=== PATIENT | female | born 1955 | race Native Hawaiian/Other Pacific Islander ===

== ENCOUNTER 2017-07-31 22:22 | Inpatient (IN) | payer BC ==
[2017-08-01 00:09] LABS: PH,URINE 6.5 (4.7-8.0); URINE APPEARANCE CLEAR (CLEAR); URINE BILIRUBIN NEGATIVE (NEGATIVE); URINE BLOOD NEGATIVE (NEGATIVE); URINE COLOR STRAW (YELLOW); URINE GLUCOSE (UA) NEGATIVE (NEGATIVE); URINE KETONE NEGATIVE (NEGATIVE); URINE LEUKOCYTE ESTERASE SMALL Leu/uL (NEGATIVE); URINE PROTEIN NEGATIVE mg/dL (<30 mg/dL); URINE UROBILINOGEN 0.2 E.U./dL (<1 E.U./dL)
[2017-08-01 00:16] LABS: BASO # 0.04 K/mm3 (0.0-2.0); BASO % 0.5 % (0.0-3.0); EOS # 0.2 (0.0-0.7); EOS % 2.7 % (1.5-5.0); GRAN # 5.15 (1.4-6.5); GRAN % 66.3 % (50.0-68.0); HEMATOCRIT 42.3 % (36.0-48.0); LYMPH # 1.8 (1.2-3.4); LYMPH % 23.7 % (22.0-35.0); MEAN CELL VOLUME 88.1 fl (80.0-105.0); MEAN CORPUSCULAR HEMOGLOBIN 29.8 pg (25.0-35.0); MEAN CORPUSCULAR HGB CONC 33.8 g/dl (31.0-37.0); MEAN PLATELET VOLUME 9.6 fl (7.0-11.0); MONO # 0.5 (0.1-0.6); MONO % 6.8 % (1.0-6.0); RED CELL DISTRIBUTION WIDTH 12.4 % (11.5-14.5); WHITE BLOOD COUNT 7.8 10^3/ul (4.5-11.0)
[2017-08-01 00:27] LABS: URINE RBC 0 - 2 /hpf (0-2); URINE WBC 0 - 2 /hpf (0-6)
[2017-08-01 00:28] LABS: ALB/GLOB RATIO 1.5 (1.1-1.8); ALKALINE PHOSPHATASE 60 U/L (38-126); ALT/SGPT 17 U/L (7-56); AST/SGOT 27 U/L (14-36); BILIRUBIN,TOTAL 0.3 mg/dL (0.2-1.3); BLOOD UREA NITROGEN 13 mg/dL (7-21); CALCIUM 9.2 mg/dL (8.4-10.5); CARBON DIOXIDE 26 mmol/L (21-33); CHLORIDE 104 mmol/L (98-107); GFR AFRICAN-AMERICAN > 60; GLUCOSE,RANDOM 92 mg/dL (70-110); INR 0.95 (0.93-1.08); PARTIAL THROMBOPLASTIN TIME 26.2 Seconds (23.7-30.8); SODIUM 142 mmol/L (132-148); TOTAL PROTEIN 7.1 g/dL (5.8-8.3); URINE EPITHELIAL CELLS 0 - 2 /hpf (0-5)
[2017-08-01 00:41] LABS: TROPONIN I < 0.01 ng/mL
--- NOTE | 2017-08-01 00:47 | CT ---
EXAM: CT Head Without Intravenous Contrast CLINICAL HISTORY: 62 years old, female; Pain; Headache; Additional info: Headache/dizziness/numbness TECHNIQUE: Axial computed tomography images of the head/brain without intravenous contrast. All CT scans at this facility use one or more dose reduction techniques, viz.: automated exposure control; ma/kV adjustment per patient size (including targeted exams where dose is matched to indication; i.e. head); or iterative reconstruction technique. Coronal and sagittal reformatted images were created and reviewed. COMPARISON: No relevant prior studies available. FINDINGS: Brain: A single 9 mm focus of increased attenuation is identified within the left frontal lobe with trace surrounding vasogenic edema, findings suggesting acute intracranial hemorrhage. Age-appropriate periventricular white matter disease. Ventricles: Age-appropriate ventriculomegaly. Bones: No acute displaced fracture. Sinuses: Unremarkable as visualized. No acute sinusitis. Mastoid air cells: Unremarkable as visualized. No mastoid effusion. IMPRESSION: 9 mm focus of acute hemorrhage within the left frontal lobe, as detailed above.
--- NOTE | 2017-08-01 01:08 | ED PDOC ---
Arrival/HPI <Hai Haley - Last Filed: 08/01/17 02:29> - General Historian: Patient - History of Present Illness Time/Duration: Other (2 days) Symptom Onset: Gradual Symptom Course: Worsening <Roya Alonso - Last Filed: 08/01/17 03:32> - General Chief Complaint: Allergic Reaction Time Seen by Provider: 07/31/17 22:40 - History of Present Illness Narrative History of Present Illness (Text): 08/01/17 01:32 62-year-old female with a history of Parkinson's presents today with a right- sided headache and facial numbness that started yesterday but worsened today after taking her new Parkinson's medication (sinemet). Patient describes paresthesias to the right scalp and right side of the face. Patient states now she feels paresthesias to the left side of the face. Patient initially was thinking that she could possibly be allergic to her new medication. Patient complains of chronic back pain and chronic bilateral lower leg paresthesias. Patient complaining of generalized weakness no chest pain or shortness of breath. Denies blurred vision. (Roya Alonso) Past Medical History - Provider Review Nursing Documentation Reviewed: Yes - Travel History Have you recently traveled outside [place] w/in the past 3 mons?: No - Infectious Disease Hx of Infectious Diseases: None - Cardiac Hx Cardiac Disorders: Yes Hx Hypertension: Yes - Pulmonary Hx Respiratory Disorders: No - Neurological Hx Neurological Disorder: Yes Hx Parkinson's Disease: Yes - Integumentary Hx Dermatological Disorder: No - Psychiatric Hx Substance Use: No <Roya Alonso - Last Filed: 08/01/17 03:32> Family/Social History - Physician Review Nursing Documentation Reviewed: Yes Family/Social History: Unknown Family HX Smoking Status: Never Smoked Hx Alcohol Use: No Hx Substance Use: No <Roya Alonso - Last Filed: 08/01/17 03:32> Allergies/Home Meds <Hai Haley - Last Filed: 08/01/17 02:29> <Roya Alonso - Last Filed: 08/01/17 03:32> Allergies/Adverse Reactions: Allergies No Known Allergies Allergy (Verified 07/31/17 22:36) Home Medications: Home Meds Medication Instructions Recorded Confirmed Calcium Carbonate [Oscal] 500 mg PO DAILY 07/31/17 07/31/17 Carbidopa/Levodopa 1 each PO TID 07/31/17 07/31/17 [Carbidopa-Levodopa 25-100 Tab] Cholecalciferol [Vitamin D] 1,000 unit PO DAILY 07/31/17 07/31/17 Gabapentin [Neurontin] 100 mg PO DAILY 07/31/17 07/31/17 Metoprolol Succinate [Toprol XL] 25 mg PO DAILY 07/31/17 07/31/17 [place]-3S/Dha/Epa/Fish Oil/D3 [Fish 1 each PO DAILY 07/31/17 07/31/17 Oil Gummies] Review of Systems - Review of Systems Constitutional: absent: Fatigue, Fevers Eyes: absent: Vision Changes, Photophobia, Eye Pain ENT: absent: Sinus Congestion Respiratory: absent: SOB, Cough Cardiovascular: absent: Chest Pain, Palpitations Gastrointestinal: absent: Abdominal Pain, Nausea, Vomiting Genitourinary Female: absent: Dysuria Musculoskeletal: Arthralgias, Back Pain, Other (Paresthesias in face and bilateral lower legs). absent: Neck Pain Neurological: Headache, Dizziness. absent: Focal Weakness, Facial Droop Psychiatric: absent: Anxiety, Depression, Suicidal Ideation <Roya Alonso T - Last Filed: 08/01/17 03:32> Physical Exam Vital Signs Reviewed: Yes Temperature: Afebrile Blood Pressure: Normal Pulse: Tachycardic Respiratory Rate: Normal Appearance: Positive for: Well-Appearing, Non-Toxic, Comfortable Pain Distress: None Mental Status: Positive for: Alert and Oriented X 3 - Systems Exam Head: Present: Atraumatic. No: Tenderness, Contusion, Swelling, Ecchymosis, Abrasion, Laceration Pupils: Present: PERRL Extroacular Muscles: Present: EOMI Conjunctiva: Present: Normal. No: Injected Mouth: Present: Moist Mucous Membranes Nose (External): Present: Atraumatic Nose (Internal): Present: Normal Inspection Neck: Present: Normal Range of Motion Respiratory/Chest: Present: Clear to Auscultation Cardiovascular: Present: Regular Rate and Rhythm Abdomen: No: Tenderness, Rebound, Guarding Upper Extremity: Present: Normal ROM. No: Tenderness, Swelling Lower Extremity: Present: NORMAL PULSES, Normal ROM (slow full rom, limited rom of toes), Capillary Refill < 2 s. No: Tenderness Neurological: Present: Speech Normal, Memory Normal. No: Normal Sensory Function (+ decreased sensation in lower extremities. ), Gait Normal (Shuffling gait) Skin: Present: Warm, Dry Psychiatric: Present: Alert, Oriented x 3 <Roya Alonso - Last Filed: 08/01/17 03:32> Vital Signs Temp Pulse Resp BP Pulse Ox 08/01/17 03:04 101 H 23 141/94 H 99 08/01/17 01:08 98.6 F 109 H 20 144/87 97 Medical Decision Making <Hai Haley - Last Filed: 08/01/17 02:29> <Roya Alonso - Last Filed: 08/01/17 03:32> ED Course and Treatment: 08/01/17 01:19 62yr old female with hx of parkinsons c/o right sided headache, dizziness, parasthesias. cbc; wnl cmp; wnl trop; wnl ekg; normal sinus rhythm at [address] elevations normal axis normal intervals cxr; no infiltrate uA; small leukocytes CT Head; FINDINGS: Brain: A single 9 mm focus of increased attenuation is identified within the left frontal lobe with trace surrounding vasogenic edema, findings suggesting acute intracranial hemorrhage. Age-appropriate periventricular white matter disease. Ventricles: Age-appropriate ventriculomegaly. Bones: No acute displaced fracture. Sinuses: Unremarkable as visualized. No acute sinusitis. Mastoid air cells: Unremarkable as visualized. No mastoid effusion. IMPRESSION: 9 mm focus of acute hemorrhage within the left frontal lobe, as detailed above. pt with hx of parkinsons; with right sided headache dizziness and parasthesias to face bilaterally. no acute neurologic deficits. 08/01/17 01:[address] quigley; observation; no intervention at this time. case discussed with dr. richardson; accepts admission to ICU case discussed with dr. arroyo covering for dr. sibley; accepts admission. case discussed with resident; dr. estrada discussed results in depth with patient/family. impression; intracranial hemorrhage Admit to ICU (Roya Alonso) - Lab Interpretations Lab Results: 07/31/17 23:54 07/31/17 23:54 Lab Results 07/31/17 23:54: PT 10.3, INR 0.95, APTT 26.2 07/31/17 23:54: WBC 7.8, RBC 4.80, Hgb 14.3, Hct 42.3, MCV 88.1, MCH 29.8, MCHC 33.8, RDW 12.4, Plt Count 320, MPV 9.6, Gran % 66.3, Lymph % (Auto) 23.7, [place] % (Auto) 6.8 H, Eos % (Auto) 2.7, Baso % (Auto) 0.5, Gran # 5.15, Lymph # 1.8, [place] # 0.5, Eos # 0.2, Baso # 0.04 07/31/17 23:54: Sodium 142, Potassium 4.0, Chloride 104, Carbon Dioxide 26, Anion Gap 16, BUN 13, Creatinine 0.7, Est GFR ( Amer) > 60, Est GFR (Non- Af Amer) > 60, Random Glucose 92, Calcium 9.2, Total Bilirubin 0.3, AST 27, ALT 17, Alkaline Phosphatase 60, Lactate Dehydrogenase 411, Total Creatine Kinase 41 , Troponin I < 0.01, Total Protein 7.1, Albumin 4.3, Globulin 2.8, Albumin/ Globulin Ratio 1.5 07/31/17 23:54: Urine Color Straw, Urine Appearance Clear, Urine pH 6.5, Ur Specific [place] <= 1.005, Urine Protein Negative, Urine Glucose (UA) Negative, Urine Ketones Negative, Urine Blood Negative, Urine Nitrate Negative, Urine Bilirubin Negative, Urine Urobilinogen 0.2, Ur Leukocyte Esterase Small H, Urine RBC 0 - 2, Urine WBC 0 - 2, Ur Epithelial Cells 0 - 2 07/31/17 22:35: POC Glucose (mg/dL) 131 H - RAD Interpretation Radiology Orders: 07/31/17 23:26 HEAD W/O CONTRAST [CT] Stat CHEST PORTABLE [RAD] Stat 08/01/17 08:00 HEAD W/O CONTRAST [CT] Routine - Medication Orders Current Medication Orders: Sodium Chloride (Sodium Chloride 0.9%) 1,000 mls @ 100 mls/hr IV .Q10H PAMELA Pantoprazole Sodium (Protonix Inj) 40 mg IVP DAILY PAMELA NIHSS Scale ([place]) Time Performed: 23:25 - How Severe is the Stoke Baseline Level of Consciousness: 0=Alert LOC to Questions: 0=Both comments correct LOC to commands: 0=Obeys both correctly Best Gaze: 0=Normal Visual: 0=No visual loss Facial: 0=Normal Motor Arm - Left: 0=No drift Motor Arm - Right: 0=No drift Motor Leg - Left: 0=No drift Motor Leg - Right: 0=No drift Limb Ataxia: 0=Absent Sensory: 0=Normal Best Language: 0=No aphasia Dysarthia: 0=Normal articulation Extinction & Inattention (Neglect): 0=Normal, no object Score: 0 Risk Level: No Stroke Risk <Roya Alonso - Last Filed: 08/01/17 03:32> - PA / MEDICAL RECEPTIONIST ASSISTANT / Resident Statement RYAN has reviewed & agrees with the documentation as recorded. RYAN has examined the patient and agrees with the treatment plan. <Hai Haley - Last Filed: 08/01/17 02:29> Disposition/Present on Arrival <Hai Haley - Last Filed: 08/01/17 02:29> - Present on Arrival Any Indicators Present on Arrival: No History of DVT/PE: No History of Uncontrolled Diabetes: No Urinary Catheter: No History of Decub. Ulcer: No History Surgical Site Infection Following: None - Disposition Have Diagnosis and Disposition been Completed?: Yes Disposition Time: 01:08 Patient Plan: Admission, ICU <Roya Alonso - Last Filed: 08/01/17 03:32> - Disposition Diagnosis: Intracranial hemorrhage Disposition: HOSPITALIZED Patient Problems: Current Active Problems Problem Status Onset Intracranial hemorrhage Acute Condition: CRITICAL
--- NOTE | 2017-08-01 02:22 | CP.PCM.CON ---
<Monica Irene - Last Filed: 08/01/17 06:47> History of Present Illness - History of Present Illness History of Present Illness: 62yo female PMHx HTN, Parkinson's dz, neuropathy, and osteoporosis presented with right sided facial numbness for 1 day. Patient reports she woke up and felt the left side of her face was numb and tingling which radiated to the right side. She also complained of a bilateral 10/10 headache with associated blurry vision, dizziness, and lightheadedness. Patient also complained of nausea but no emesis. At first she believed she was having an allergic reaction to her new medication regimen which is why she came in. She also complained of chronic bilateral lower leg pain and paresthesias. Patient has seen Dr. Ovi Pennington in the past for paresthesias and has been worked up with cervico/thoraco/ lumbar MRI. She reports the numbness is waist down and she feels like her legs are stuck. She denied any saddle anesthesia and incontinence. Patient denied any chest pain, SOB, abdominal pain, bowel/bladder complaints. PMD: [facility] [place] Physician PMHx: HTN, Parkinson's dz, neuropathy, osteoporosis PSurgHx: hysterectomy 1999, 1981, lumpectomy R breast ' Family Hx: mother HTN, sister breast ca Social Hx: denies tobacco, alcohol, and illicit drug use Allergy: latex, spandex Meds: pls see medical record Review of Systems - Constitutional Constitutional: As Per HPI. absent: Chills, Fever - EENT Eyes: As Per HPI, Blurred Vision Ears: As Per HPI, Disequilibrium, Dizziness Nose/Mouth/Throat: As Per HPI. absent: Sore Throat - Cardiovascular Cardiovascular: As Per HPI. absent: Chest Pain, Dyspnea - Respiratory Respiratory: As Per HPI. absent: Cough, Dyspnea - Gastrointestinal Gastrointestinal: As Per HPI, Nausea. absent: Abdominal Pain, Constipation, Diarrhea, Vomiting - Genitourinary Genitourinary: As Per HPI. absent: Dysuria - Musculoskeletal Musculoskeletal: As Per HPI, Muscle Cramps (b/l LE), Numbness (b/l LE), Stiffness (b/l LE), Tingling (b/l LE) - Integumentary Integumentary: As Per HPI. absent: Dry Skin - Neurological Neurological: As Per HPI, Disequilibrium, Dizziness, Headaches, Paresthesias (b/ l LE) - Psychiatric Psychiatric: As Per HPI, Anxiety - Hematologic/Lymphatic Hematologic: As Per HPI. absent: Easy Bleeding, Easy Bruising Past Patient History - Infectious Disease Hx of Infectious Diseases: None - Past Social History Smoking Status: Never Smoked - CARDIAC Hx Cardiac Disorders: Yes Hx Hypertension: Yes - PULMONARY Hx Respiratory Disorders: No - NEUROLOGICAL Hx Neurological Disorder: Yes Hx Parkinson's Disease: Yes - INTEGUMENTARY Hx Dermatological Problems: No - PSYCHIATRIC Hx Substance Use: No Meds Allergies/Adverse Reactions: Allergies Allergy/AdvReac Type Severity Reaction Status Date / Time latex Allergy Intermediate RASH Verified 08/01/17 04:56 spandex Allergy rash,itch Uncoded 08/01/17 04:56 - Medications Medications: Current Medications Sodium Chloride (Sodium Chloride 0.9%) 1,000 mls @ 100 mls/hr IV .Q10H PAMELA Pantoprazole Sodium (Protonix Inj) 40 mg IVP DAILY PAMELA Physical Exam - Constitutional Appears: Non-toxic, No Acute Distress - Head Exam Head Exam: ATRAUMATIC, NORMAL INSPECTION, NORMOCEPHALIC - Eye Exam Eye Exam: EOMI, Normal appearance, PERRL. absent: Conjunctival injection, Scleral icterus Pupil Exam: NORMAL ACCOMODATION - ENT Exam ENT Exam: Mucous Membranes Moist - Neck Exam Neck exam: Positive for: Full Rom, Normal Inspection. Negative for: Tenderness - Respiratory Exam Respiratory Exam: Clear to Auscultation Bilateral, NORMAL BREATHING PATTERN. absent: Accessory Muscle Use, Rales, Rhonchi, Wheezes, Respiratory Distress - Cardiovascular Exam Cardiovascular Exam: Tachycardia, +S1, +S2. absent: Systolic Murmur - GI/Abdominal Exam GI & Abdominal Exam: Normal Bowel Sounds, Soft. absent: Firm, Guarding, Rigid, Tenderness - Extremities Exam Extremities exam: Positive for: normal capillary refill, normal inspection, pedal pulses present. Negative for: joint swelling, tenderness - Neurological Exam Neurological exam: Alert, CN II-XII Intact, Oriented x3 - Psychiatric Exam Psychiatric exam: Anxious - Skin Skin Exam: Dry, Intact, Normal Color Results - Vital Signs Recent Vital Signs: Last Vital Signs Temp 98.6 F 08/01/17 01:08 Pulse 109 H 08/01/17 01:08 Resp 20 08/01/17 01:08 BP 144/87 08/01/17 01:08 Pulse Ox 97 08/01/17 01:08 - Labs Result Diagrams: 08/01/17 05:00 07/31/17 23:54 Labs: Laboratory Results - last 24 hr 07/31/17 07/31/17 07/31/17 22:35 23:54 23:54 WBC RBC Hgb Hct MCV MCH MCHC RDW Plt Count MPV Gran % Lymph % (Auto) [place] % (Auto) Eos % (Auto) Baso % (Auto) Gran # Lymph # [place] # Eos # Baso # PT INR APTT Sodium 142 Potassium 4.0 Chloride 104 Carbon Dioxide 26 Anion Gap 16 BUN 13 Creatinine 0.7 Est GFR ( Amer) > 60 Est GFR (Non-Af Amer) > 60 POC Glucose (mg/dL) 131 H Random Glucose 92 Calcium 9.2 Total Bilirubin 0.3 AST 27 ALT 17 Alkaline Phosphatase 60 Lactate Dehydrogenase 411 Total Creatine Kinase 41 Troponin I < 0.01 Total Protein 7.1 Albumin 4.3 Globulin 2.8 Albumin/Globulin Ratio 1.5 Urine Color Straw Urine Appearance Clear Urine pH 6.5 Ur Specific [place] <= 1.005 Urine Protein Negative Urine Glucose (UA) Negative Urine Ketones Negative Urine Blood Negative Urine Nitrate Negative Urine Bilirubin Negative Urine Urobilinogen 0.2 Ur Leukocyte Esterase Small H Urine RBC 0 - 2 Urine WBC 0 - 2 Ur Epithelial Cells 0 - 2 07/31/17 07/31/17 23:54 23:54 WBC 7.8 RBC 4.80 Hgb 14.3 Hct 42.3 MCV 88.1 MCH 29.8 MCHC 33.8 RDW 12.4 Plt Count 320 MPV 9.6 Gran % 66.3 Lymph % (Auto) 23.7 [place] % (Auto) 6.8 H Eos % (Auto) 2.7 Baso % (Auto) 0.5 Gran # 5.15 Lymph # 1.8 [place] # 0.5 Eos # 0.2 Baso # 0.04 PT 10.3 INR 0.95 APTT 26.2 Sodium Potassium Chloride Carbon Dioxide Anion Gap BUN Creatinine Est GFR ( Amer) Est GFR (Non-Af Amer) POC Glucose (mg/dL) Random Glucose Calcium Total Bilirubin AST ALT Alkaline Phosphatase Lactate Dehydrogenase Total Creatine Kinase Troponin I Total Protein Albumin Globulin Albumin/Globulin Ratio Urine Color Urine Appearance Urine pH Ur Specific [place] Urine Protein Urine Glucose (UA) Urine Ketones Urine Blood Urine Nitrate Urine Bilirubin Urine Urobilinogen Ur Leukocyte Esterase Urine RBC Urine WBC Ur Epithelial Cells Assessment & Plan - Assessment and Plan (Free Text) Assessment: 62yo female PMHx HTN, Parkinson's dz, neuropathy, and osteoporosis presented with right sided facial numbness for 1 day Plan: Acute Hemorrhage - CT head without contrast: 9mm focus of acute hemorrhage within L frontal lobe - repeat head CT on 08/01 - Patient kept NPO - Neurochecks Q1 - Head above 30 degrees - Fall risk - Aspiration precautions - PT/OT - Neurosurgery: Dr Cook consulted - Neurology: Dr Ovi Pennington consulted Hx of HTN - hold home medications - restart when patient passes swallow eval Hx of Parkinson's disease - hold home medications - restart when patient passes swallow eval Hx of Bilateral LE neuropathy - hold home medications - restart when patient passes swallow eval Hx of Osteoporosis - hold home medications - restart when patient passes swallow eval GI ppx: Protonix 40mg ivp qdaily DVT ppx: SCDs Diet: NPO Fluids: NS @ 100cc/hr Case discussed with Dr. Yoko Irene PGY2 <Yoko WEN,Robinson - Last Filed: 08/01/17 12:43> Meds - Medications Medications: Current Medications Sodium Chloride (Sodium Chloride 0.9%) 1,000 mls @ 100 mls/hr IV .Q10H [facility] Last Admin: 08/01/17 03:27 Dose: 100 mls/hr Pantoprazole Sodium (Protonix Inj) 40 mg IVP DAILY PAMELA Results - Vital Signs Recent Vital Signs: Last Vital Signs Temp 98.2 F 08/01/17 04:24 Pulse 89 08/01/17 09:00 Resp 14 08/01/17 09:00 BP 147/86 08/01/17 09:00 Pulse Ox 99 08/01/17 09:00 - Labs Result Diagrams: 08/01/17 05:00 08/01/17 05:00 Labs: Laboratory Results - last 24 hr 08/01/17 08/01/17 08/01/17 05:00 05:00 05:00 WBC 8.4 RBC 5.02 Hgb 15.0 Hct 44.3 MCV 88.2 MCH 29.9 MCHC 33.9 RDW 12.5 Plt Count 328 MPV 10.0 Gran % 79.5 H Lymph % (Auto) 14.3 L [place] % (Auto) 5.1 Eos % (Auto) 0.6 L Baso % (Auto) 0.5 Gran # 6.64 H Lymph # 1.2 [place] # 0.4 Eos # 0.1 Baso # 0.04 Sodium 142 Potassium 3.8 Chloride 105 Carbon Dioxide 27 Anion Gap 14 BUN 10 Creatinine 0.6 L Est GFR ( Amer) > 60 Est GFR (Non-Af Amer) > 60 Random Glucose 105 Hemoglobin A1c 5.5 Calcium 9.3 Phosphorus 3.6 Magnesium 2.2 Total Bilirubin 0.5 AST 26 ALT 25 Alkaline Phosphatase 67 Total Protein 6.9 Albumin 4.2 Globulin 2.7 Albumin/Globulin Ratio 1.6 Triglycerides 84 Cholesterol 248 H LDL Cholesterol Direct 151 H HDL Cholesterol 74 H Thyroxine (T4) TSH 3rd Generation 08/01/17 05:00 WBC RBC Hgb Hct MCV MCH MCHC RDW Plt Count MPV Gran % Lymph % (Auto) [place] % (Auto) Eos % (Auto) Baso % (Auto) Gran # Lymph # [place] # Eos # Baso # Sodium Potassium Chloride Carbon Dioxide Anion Gap BUN Creatinine Est GFR ( Amer) Est GFR (Non-Af Amer) Random Glucose Hemoglobin A1c Calcium Phosphorus Magnesium Total Bilirubin AST ALT Alkaline Phosphatase Total Protein Albumin Globulin Albumin/Globulin Ratio Triglycerides Cholesterol LDL Cholesterol Direct HDL Cholesterol Thyroxine (T4) 12.9 H TSH 3rd Generation 0.75 Attending/Attestation - Attestation I have personally seen and examined this patient.: Yes I have fully participated in the care of the patient.: Yes I have reviewed all pertinent clinical information: Yes Notes (Text): -I agree with the above ICU consult note completed by the resident physician with the following additions and/or changes: -The patient is a 62 year old woman with a history of Parkinson's disease, neuropathy and HTN, who is being admitted to the ICU after being found to have an acute 9mm left frontal lobe ICH (without mass effect). Consequently, hourly neuro checks have been ordered (alongside HOB>30 degrees and fall precautions). Both neurology and neurosurgery are aware of the patient's case and plan to evaluate her later today. Per neurosurgery (contacted by ED physician last night ), no acute surgical intervention required. Of course, we will hold all anti- platelet and anticoagulation meds. Tight control of SBP (to goal <150).
[2017-08-01] MEDS: Sodium Chloride 0.9% 1,000 ML IV SCH ×2 (03:27→13:59)
[2017-08-01] MEDS ORDERED: Naproxen 275 mg Tab PO ONE (05:01)
[2017-08-01 06:21] LABS: BASO # 0.04 K/mm3 (0.0-2.0); BASO % 0.5 % (0.0-3.0); EOS # 0.1 (0.0-0.7); EOS % 0.6 % (1.5-5.0); GRAN # 6.64 (1.4-6.5); GRAN % 79.5 % (50.0-68.0); HEMATOCRIT 44.3 % (36.0-48.0); LYMPH # 1.2 (1.2-3.4); LYMPH % 14.3 % (22.0-35.0); MEAN CELL VOLUME 88.2 fl (80.0-105.0); MEAN CORPUSCULAR HEMOGLOBIN 29.9 pg (25.0-35.0); MEAN CORPUSCULAR HGB CONC 33.9 g/dl (31.0-37.0); MONO # 0.4 (0.1-0.6); MONO % 5.1 % (1.0-6.0); RED CELL DISTRIBUTION WIDTH 12.5 % (11.5-14.5); WHITE BLOOD COUNT 8.4 10^3/ul (4.5-11.0)
[2017-08-01 06:39] LABS: ALB/GLOB RATIO 1.6 (1.1-1.8); ALKALINE PHOSPHATASE 67 U/L (38-126); ALT/SGPT 25 U/L (7-56); AST/SGOT 26 U/L (14-36); BILIRUBIN,TOTAL 0.5 mg/dL (0.2-1.3); BLOOD UREA NITROGEN 10 mg/dL (7-21); CALCIUM 9.3 mg/dL (8.4-10.5); CARBON DIOXIDE 27 mmol/L (21-33); CHLORIDE 105 mmol/L (98-107); CHOLESTEROL 248 mg/dL (130-200); GFR AFRICAN-AMERICAN > 60; GLUCOSE,RANDOM 105 mg/dL (70-110); MAGNESIUM 2.2 mg/dL (1.7-2.2); PHOSPHOROUS 3.6 mg/dL (2.5-4.5); POTASSIUM 3.8 mmol/L (3.6-5.0); SODIUM 142 mmol/L (132-148); TOTAL PROTEIN 6.9 g/dL (5.8-8.3)
[2017-08-01 06:53] LABS: T4 12.9 ug/dL (5.5-11.0)
[2017-08-01 07:07] LABS: THYROID STIMULATING HORMONE 0.75 mIU/mL (0.46-4.68)
[2017-08-01 08:20] VITALS: BMI 21.2
--- NOTE | 2017-08-01 08:37 | CP.PCM.PN ---
Subjective - Date & Time of Evaluation Date of Evaluation: 08/01/17 Time of Evaluation: 08:35 - Subjective Subjective: revieweed CT 9mm hyperdense lesion in frontal lobe(L) no mass effect by hx at least 1 day old [employer] CONSULTANT the pt is under care of neurology for her PMH No neurosurgical involvment indicated at this time Objective - Vital Signs/Intake and Output Vital Signs (last 24 hours): Temp Pulse Resp BP Pulse Ox 98.2 F 89 18 141/94 H 99 08/01/17 04:24 08/01/17 06:00 08/01/17 04:24 08/01/17 03:04 08/01/17 03:55 - Medications Medications: Current Medications Sodium Chloride (Sodium Chloride 0.9%) 1,000 mls @ 100 mls/hr IV .Q10H PAMELA Last Admin: 08/01/17 03:27 Dose: 100 mls/hr Pantoprazole Sodium (Protonix Inj) 40 mg IVP DAILY PAMELA - Labs Labs: 08/01/17 05:00 08/01/17 05:00 PT 10.3 Seconds (9.9-11.8) 07/31/17 23:54 INR 0.95 (0.93-1.08) 07/31/17 23:54 APTT 26.2 Seconds (23.7-30.8) 07/31/17 23:54
--- NOTE | 2017-08-01 09:00 | RAD ---
HISTORY: dizziness, numbness COMPARISON: No prior. FINDINGS: LUNGS: The lungs are well inflated and clear. PLEURA: No significant pleural effusion identified, no pneumothorax apparent. CARDIOVASCULAR: Normal. OSSEOUS STRUCTURES: No significant abnormalities. VISUALIZED UPPER ABDOMEN: Normal. OTHER FINDINGS: None. IMPRESSION: No active pulmonary disease.
--- NOTE | 2017-08-01 09:30 | CT ---
PROCEDURE: CT HEAD WITHOUT CONTRAST. HISTORY: bleed COMPARISON: 08/01/2017 earlier study TECHNIQUE: Axial computed tomography images were obtained through the head/brain without intravenous contrast. Radiation dose: Total exam DLP = 692 mGy-cm. This CT exam was performed using one or more of the following dose reduction techniques: Automated exposure control, adjustment of the mA and/or kV according to patient size, and/or use of iterative reconstruction technique. FINDINGS: HEMORRHAGE: There is a small 6 mm acute hemorrhage in the left frontal lobe that is stable in appearance compared to the earlier study. The finding is seen on image 24 series 2 BRAIN: No mass effect or edema. No atrophy or chronic microvascular ischemic changes. VENTRICLES: Unremarkable. No hydrocephalus. CALVARIUM: Unremarkable. PARANASAL SINUSES: Unremarkable as visualized. No significant inflammatory changes. MASTOID AIR CELLS: Unremarkable as visualized. No inflammatory changes. OTHER FINDINGS: None. IMPRESSION: Stable appearance of 6 mm acute hemorrhage in the left frontal lobe
--- NOTE | 2017-08-01 10:11 | CARD ---
APPROVED REPORT EKG Measurement Heart [id number] [id number] <Conclusion> Normal sinus rhythm RSR' or QR pattern in V1 suggests right ventricular conduction delay Borderline ECG
--- NOTE | 2017-08-01 11:46 | CP.PCM.CON ---
<Esther Ricardo - Last Filed: 08/01/17 15:58> History of Present Illness - History of Present Illness History of Present Illness: Neurology Consult Note for Gildardo Mejia PGY2 Reason for consult: intracerebral hemorrhage This is a 62Y F with PMH HTN, parkinson's, neuropathy and osteoporosis who came to ED for sudden facial numbness for one day. She reports she took her Sinemet and began to feel numb in her face with associated headache, blurry vision and light headedness. She has taken Sinemet before without any issues. This episode has never happened before. She denies having any trauma, tongue biting, slurred speech, new weakness or tonic-clonic movements. In ED, head CT was found to be positive for intracerebral bleed in L frontal lobe. Patient denies taking Aspirin or NSAIDs regularly. Today she reports her numbness/tingling has resolved and has some frontal migraine that is mild. She denies CP, SOB, n/v/d, numbness/tingling, fever/chills, dysuria or hematuria. PMH: HTN, Parkinsons, Neuropathy, Osteoporosis PSH: , Hysterectomy, Lumpectomy R breast Home meds: Sinemet, Metoprolol, Gabapentin All: Latex, Spandex SH: Denies EtOH, tobacco or drug use. Lives with family FH: Mom- HTN, Sister- breast cancer Review of Systems - Review of Systems All systems: reviewed and no additional remarkable complaints except Review of Systems: + Headache, facial numbness/tingling, dizziness Past Patient History - Infectious Disease Hx of Infectious Diseases: None - Past Social History Smoking Status: Never Smoked Alcohol: None Drugs: Denies Home Situation {Lives}: With Family - CARDIAC Hx Cardiac Disorders: Yes Hx Hypertension: Yes - PULMONARY Hx Respiratory Disorders: No - NEUROLOGICAL Hx Neurological Disorder: Yes Hx Parkinson's Disease: Yes - HEENT Hx HEENT Problems: No - RENAL Hx Chronic Kidney Disease: No - ENDOCRINE/METABOLIC Hx Endocrine Disorders: No - HEMATOLOGICAL/ONCOLOGICAL Hx Blood Disorders: No - INTEGUMENTARY Hx Dermatological Problems: No - MUSCULOSKELETAL/RHEUMATOLOGICAL Hx Musculoskeletal Disorders: Yes Hx Arthritis: Yes Hx Back Pain: Yes Hx Falls: No Hx Osteoporosis: Yes - GASTROINTESTINAL Hx Gastrointestinal Disorders: No - GENITOURINARY/GYNECOLOGICAL Hx Genitourinary Disorders: No - PSYCHIATRIC Hx Substance Use: No - SURGICAL HISTORY Hx Surgeries: Yes Hx Hysterectomy: Yes Other/Comment: C sect Meds Allergies/Adverse Reactions: Allergies Allergy/AdvReac Type Severity Reaction Status Date / Time latex Allergy Intermediate RASH Verified 08/01/17 04:56 spandex Allergy rash,itch Uncoded 08/01/17 04:56 - Medications Medications: Current Medications Sodium Chloride (Sodium Chloride 0.9%) 1,000 mls @ 100 mls/hr IV .Q10H [facility] Last Admin: 08/01/17 03:27 Dose: 100 mls/hr Pantoprazole Sodium (Protonix Inj) 40 mg IVP DAILY [facility] Physical Exam - Constitutional Appears: No Acute Distress - Head Exam Head Exam: ATRAUMATIC, NORMAL INSPECTION, NORMOCEPHALIC - Eye Exam Eye Exam: Normal appearance, PERRL Pupil Exam: NORMAL ACCOMODATION, PERRL - ENT Exam ENT Exam: Mucous Membranes Moist - Respiratory Exam Respiratory Exam: Clear to Auscultation Bilateral, NORMAL BREATHING PATTERN. absent: Rales, Rhonchi, Wheezes - Cardiovascular Exam Cardiovascular Exam: REGULAR RHYTHM, +S1, +S2. absent: Gallop, Rubs, Systolic Murmur - GI/Abdominal Exam GI & Abdominal Exam: Normal Bowel Sounds, Soft. absent: Rebound, Rigid, Tenderness - Extremities Exam Extremities exam: Positive for: normal inspection. Negative for: calf tenderness, pedal edema - Neurological Exam Neurological exam: Alert, CN II-XII Intact, Oriented x3 - Expanded Neurological Exam Expanded Patient oriented to: person, place, time Cranial nerves: Facial Palsey w/Forehead Movement: Normal, Facial Palsey w/o Forehead Movement: Normal, Facial Sensation: Normal, Tongue Deviation: Normal Cerebellar Function: Finger to Nose: Normal Upper motor neuron: Pronator Drift: Normal Neuro motor strength exam: Left Upper Extremity: 5, Right Upper Extremity: 5, Left Lower Extremity: 5, Right Lower Extremity: 5 Coma Scale Eye Opening: SPONTANEOUS Coma Scale Motor Response: OBEYS COMMANDS Coma Scale Verbal: Oriented Coma Scale Total: 15 - Psychiatric Exam Psychiatric exam: Normal Affect, Normal Mood - Skin Skin Exam: Dry, Normal Color, Warm Results - Vital Signs Recent Vital Signs: Last Vital Signs Temp 98.2 F 08/01/17 04:24 Pulse 89 08/01/17 09:00 Resp 14 08/01/17 09:00 BP 147/86 08/01/17 09:00 Pulse Ox 99 08/01/17 09:00 - Labs Result Diagrams: 08/01/17 05:00 08/01/17 05:00 Labs: Laboratory Results - last 24 hr 08/01/17 08/01/17 08/01/17 05:00 05:00 05:00 WBC 8.4 RBC 5.02 Hgb 15.0 Hct 44.3 MCV 88.2 MCH 29.9 MCHC 33.9 RDW 12.5 Plt Count 328 MPV 10.0 Gran % 79.5 H Lymph % (Auto) 14.3 L [place] % (Auto) 5.1 Eos % (Auto) 0.6 L Baso % (Auto) 0.5 Gran # 6.64 H Lymph # 1.2 [place] # 0.4 Eos # 0.1 Baso # 0.04 Sodium 142 Potassium 3.8 Chloride 105 Carbon Dioxide 27 Anion Gap 14 BUN 10 Creatinine 0.6 L Est GFR ( Amer) > 60 Est GFR (Non-Af Amer) > 60 Random Glucose 105 Calcium 9.3 Phosphorus 3.6 Magnesium 2.2 Total Bilirubin 0.5 AST 26 ALT 25 Alkaline Phosphatase 67 Total Protein 6.9 Albumin 4.2 Globulin 2.7 Albumin/Globulin Ratio 1.6 Triglycerides 84 Cholesterol 248 H LDL Cholesterol Direct 151 H HDL Cholesterol 74 H Thyroxine (T4) 12.9 H TSH 3rd Generation 0.75 Assessment & Plan - Assessment and Plan (Free Text) Assessment: This is a 62Y F with PMH HTN, parkinson's, neuropathy and osteoporosis who was found to have 9mm L frontal lobe intracerebral bleed without mass effect. Repeat head CT should 6mm bleed. As per neurosurgery, no surgical intervention at this time. Plan: - Maintain SBP 120-130s - HOB elevated 30 degrees - Physical therapy - Hold any anticoagulation - Neuro checks - MRA head ordered by PMD- will review - Chol elevated- recommend starting Lipitor 20mg upon dc - Will continue Gabapentin for chronic neuropathic pain - Continue Sinemet Recommend POLI. No further neurological work up at this time. Thank you for this consultation. Please re-consult if needed. Will continue to follow up with patient as outpatient Case seen, discussed and reviewed with Dr. Pennington. Gildardo Ricardo PGY2 - Date & Time Date: 08/01/17 Time: 12:49 <Quinton Pennington - Last Filed: 08/01/17 16:22> Meds - Medications Medications: Current Medications Calcium Carbonate (Oscal) 500 mg PO DAILY [facility] Last Admin: 08/01/17 13:58 Dose: 500 mg Carbidopa/Levodopa (Sinemet) 1 tab PO TID [facility] Last Admin: 08/01/17 13:58 Dose: 1 tab Cholecalciferol (Vitamin D) 1,000 iu PO DAILY [facility] Last Admin: 08/01/17 13:57 Dose: 1,000 iu Gabapentin (Neurontin) 100 mg PO DAILY [facility] PRN Reason: Protocol Last Admin: 08/01/17 13:58 Dose: 100 mg Sodium Chloride (Sodium Chloride 0.9%) 1,000 mls @ 100 mls/hr IV .Q10H [facility] Last Admin: 08/01/17 13:59 Dose: 100 mls/hr Metoprolol Succinate (Toprol Xl) 25 mg PO DAILY [facility] Last Admin: 08/01/17 13:58 Dose: 25 mg [place]-3s/Dha/Epa/Fish Oil/D3 [Fish Oil Gummies] Home 1 each PO DAILY [facility] Last Admin: 08/01/17 14:03 Dose: Not Given Pantoprazole Sodium (Protonix Inj) 40 mg IVP DAILY [facility] Results - Vital Signs Recent Vital Signs: Last Vital Signs Temp 98.2 F 08/01/17 04:24 Pulse 79 08/01/17 13:58 Resp 14 08/01/17 09:00 BP 141/76 08/01/17 13:58 Pulse Ox 99 08/01/17 09:00 - Labs Result Diagrams: 08/01/17 05:00 08/01/17 05:00 Labs: Laboratory Results - last 24 hr 08/01/17 08/01/17 08/01/17 05:00 05:00 05:00 WBC 8.4 RBC 5.02 Hgb 15.0 Hct 44.3 MCV 88.2 MCH 29.9 MCHC 33.9 RDW 12.5 Plt Count 328 MPV 10.0 Gran % 79.5 H Lymph % (Auto) 14.3 L [place] % (Auto) 5.1 Eos % (Auto) 0.6 L Baso % (Auto) 0.5 Gran # 6.64 H Lymph # 1.2 [place] # 0.4 Eos # 0.1 Baso # 0.04 Sodium 142 Potassium 3.8 Chloride 105 Carbon Dioxide 27 Anion Gap 14 BUN 10 Creatinine 0.6 L Est GFR ( Amer) > 60 Est GFR (Non-Af Amer) > 60 Random Glucose 105 Hemoglobin A1c 5.5 Calcium 9.3 Phosphorus 3.6 Magnesium 2.2 Total Bilirubin 0.5 AST 26 ALT 25 Alkaline Phosphatase 67 Total Protein 6.9 Albumin 4.2 Globulin 2.7 Albumin/Globulin Ratio 1.6 Triglycerides 84 Cholesterol 248 H LDL Cholesterol Direct 151 H HDL Cholesterol 74 H Thyroxine (T4) TSH 3rd Generation 08/01/17 05:00 WBC RBC Hgb Hct MCV MCH MCHC RDW Plt Count MPV Gran % Lymph % (Auto) [place] % (Auto) Eos % (Auto) Baso % (Auto) Gran # Lymph # [place] # Eos # Baso # Sodium Potassium Chloride Carbon Dioxide Anion Gap BUN Creatinine Est GFR ( Amer) Est GFR (Non-Af Amer) Random Glucose Hemoglobin A1c Calcium Phosphorus Magnesium Total Bilirubin AST ALT Alkaline Phosphatase Total Protein Albumin Globulin Albumin/Globulin Ratio Triglycerides Cholesterol LDL Cholesterol Direct HDL Cholesterol Thyroxine (T4) 12.9 H TSH 3rd Generation 0.75 Attending/Attestation - Attestation I have personally seen and examined this patient.: Yes I have fully participated in the care of the patient.: Yes I have reviewed all pertinent clinical information: Yes
--- NOTE | 2017-08-01 13:19 | CP.PCM.PN ---
Subjective - Date & Time of Evaluation Date of Evaluation: 08/01/17 Time of Evaluation: 08:30 - Subjective Subjective: Patient seen and examined. Reports no major complaints. 62Y F with PMH HTN, parkinson's, neuropathy and osteoporosis who was found to have 9mm L frontal lobe intracerebral bleed without mass effect. Repeat head CT 6mm bleed. As per neurosurgery, no surgical intervention at this time Objective - Vital Signs/Intake and Output Vital Signs (last 24 hours): Temp Pulse Resp BP Pulse Ox 98.2 F 89 14 147/86 99 08/01/17 04:24 08/01/17 09:00 08/01/17 09:00 08/01/17 09:00 08/01/17 09:00 Intake and Output: 08/01/17 08/01/17 06:59 18:59 Intake Total 300 Output Total 250 Balance 50 - Medications Medications: Current Medications Atorvastatin Calcium (Lipitor) 20 mg PO DIN [facility] Gabapentin (Neurontin) 100 mg PO DAILY [facility] PRN Reason: Protocol Sodium Chloride (Sodium Chloride 0.9%) 1,000 mls @ 100 mls/hr IV .Q10H [facility] Last Admin: 08/01/17 03:27 Dose: 100 mls/hr Pantoprazole Sodium (Protonix Inj) 40 mg IVP DAILY [facility] - Labs Labs: 08/01/17 05:00 08/01/17 05:00 PT 10.3 Seconds (9.9-11.8) 07/31/17 23:54 INR 0.95 (0.93-1.08) 07/31/17 23:54 APTT 26.2 Seconds (23.7-30.8) 07/31/17 23:54 - Constitutional Appears: Well, Non-toxic - Head Exam Head Exam: ATRAUMATIC - Eye Exam Eye Exam: Normal appearance - ENT Exam ENT Exam: Normal Exam - Neck Exam Neck Exam: Normal Inspection - Respiratory Exam Respiratory Exam: Clear to Ausculation Bilateral, NORMAL BREATHING PATTERN - Cardiovascular Exam Cardiovascular Exam: REGULAR RHYTHM, RRR, +S1, +S2 - GI/Abdominal Exam GI & Abdominal Exam: Soft, Normal Bowel Sounds - Extremities Exam Extremities Exam: Normal Inspection - Neurological Exam Neurological Exam: Awake, CN II-XII Intact, Normal Gait, Oriented x3 Neuro motor strength exam: Left Upper Extremity: 5, Right Upper Extremity: 5, Left Lower Extremity: 5, Right Lower Extremity: 5 Assessment and Plan - Assessment and Plan (Free Text) Assessment: Patient is 62yo female a.w 9mm L frontal lobe intracerebral bleed, Repeat head CT showed 6mm bleed - currently afebrile, HD stable, comfortable, with no major complaints - non focal neurological exam - denies fever, chills, ALAS, dizziness, visual field defects Recommend - supp o2 as needed - no active ID issues - BP Control, keep SBP<140 - Hold Antiplatelets, HSQ - HOB elevation - PT consult - ECHO - OOB to chair - follow up Neurology - speech swallow eval - GI ppx - DVT ppx, SCDs
[2017-08-01] MEDS: Metoprolol Succinate 25 mg XL Tab PO SCH (13:58)
[2017-08-01] MEDS: FISH OIL PO SCH (14:03)
[2017-08-01] MEDS: DOCOSAHEXAENOIC ACID PO SCH (14:03)
[2017-08-01] MEDS: [UNRECOGNIZED DRUG - OTHER] PO SCH (14:03)
[2017-08-01] MEDS: CHOLECALCIFEROL PO SCH (14:03)
[2017-08-02] MEDS: Sodium Chloride 0.9% 1,000 ML IV SCH ×2 (01:11→11:19)
[2017-08-02] MEDS: Metoprolol Succinate 25 mg XL Tab PO SCH (10:25)
[2017-08-02] MEDS: CHOLECALCIFEROL PO SCH (10:46)
[2017-08-02] MEDS: [UNRECOGNIZED DRUG - OTHER] PO SCH (10:46)
[2017-08-02] MEDS: DOCOSAHEXAENOIC ACID PO SCH (10:46)
[2017-08-02] MEDS: FISH OIL PO SCH (10:46)
--- NOTE | 2017-08-02 13:46 | CP.PCM.PN ---
Subjective - Date & Time of Evaluation Date of Evaluation: 08/02/17 Time of Evaluation: 07:00 - Subjective Subjective: Patient was seen and examined in chair. Patient was eating breakfast. No acute events overnight. She denied headache, but complained of dizziness. Denies chest pain, SOB, nausea, N/V, F/C, denies any changes in vision. Denies any numbness, tingling or any other complaints. Objective - Vital Signs/Intake and Output Vital Signs (last 24 hours): Temp Pulse Resp BP Pulse Ox 97.9 F 84 19 131/74 97 08/02/17 07:00 08/02/17 11:50 08/02/17 03:10 08/02/17 10:25 08/02/17 03:10 Intake and Output: 08/02/17 08/02/17 06:59 18:59 Intake Total 1200 Output Total 300 Balance 900 - Medications Medications: Current Medications Atorvastatin Calcium (Lipitor) 40 mg PO DIN [facility] Calcium Carbonate (Oscal) 500 mg PO DAILY [facility] Last Admin: 08/02/17 10:24 Dose: 500 mg Carbidopa/Levodopa (Sinemet) 1 tab PO TID [facility] Last Admin: 08/02/17 10:24 Dose: 1 tab Cholecalciferol (Vitamin D) 1,000 iu PO DAILY [facility] Last Admin: 08/02/17 10:25 Dose: 1,000 iu Gabapentin (Neurontin) 100 mg PO DAILY [facility] PRN Reason: Protocol Last Admin: 08/02/17 10:24 Dose: 100 mg Sodium Chloride (Sodium Chloride 0.9%) 1,000 mls @ 100 mls/hr IV .Q10H [facility] Last Admin: 08/02/17 11:19 Dose: 100 mls/hr Meclizine HCl (Antivert) 12.5 mg PO Q6H [facility] PRN Reason: Other Last Admin: 08/02/17 10:24 Dose: 12.5 mg Metoprolol Succinate (Toprol Xl) 25 mg PO DAILY [facility] Last Admin: 08/02/17 10:25 Dose: 25 mg [place]-3s/Dha/Epa/Fish Oil/D3 [Fish Oil Gummies] Home 1 each PO DAILY [facility] Last Admin: 08/02/17 10:46 Dose: Not Given Pantoprazole Sodium (Protonix Inj) 40 mg IVP DAILY [facility] - Labs Labs: 08/01/17 05:00 08/01/17 05:00 PT 10.3 Seconds (9.9-11.8) 07/31/17 23:54 INR 0.95 (0.93-1.08) 07/31/17 23:54 APTT 26.2 Seconds (23.7-30.8) 07/31/17 23:54 - Constitutional Appears: Non-toxic, No Acute Distress - Head Exam Head Exam: ATRAUMATIC, NORMAL INSPECTION, NORMOCEPHALIC - Eye Exam Eye Exam: EOMI, Normal appearance, PERRL - ENT Exam ENT Exam: Mucous Membranes Moist, Normal Exam - Neck Exam Neck Exam: Full ROM. absent: Lymphadenopathy - Respiratory Exam Respiratory Exam: Clear to Ausculation Bilateral, NORMAL BREATHING PATTERN. absent: Chest Wall Tenderness - Cardiovascular Exam Cardiovascular Exam: REGULAR RHYTHM, +S1, +S2. absent: Murmur - GI/Abdominal Exam GI & Abdominal Exam: Normal Bowel Sounds. absent: Tenderness - Extremities Exam Extremities Exam: Full ROM, Normal Capillary Refill - Back Exam Back Exam: NORMAL INSPECTION - Neurological Exam Neurological Exam: Alert, Awake, Oriented x3 - Psychiatric Exam Psychiatric exam: Normal Mood - Skin Skin Exam: Normal Color Assessment and Plan - Assessment and Plan (Free Text) Assessment: 62yo female PMHx HTN, Parkinson's dz, neuropathy, and osteoporosis presented with right sided facial numbness for 1 day. She was found to have a frontal lobe hemorrhage for which she is being treated and monitored. Plan: Plan: 1.Acute Hemorrhage -repeat head CT on 08/01: 6mm focus of acute hemorrhage within L frontal lobe, initial CT showed 9mm acute focus -Neurochecks Q1 -Head above 30 degrees -Lipitor 40mg PO DIN -MRA/MRI head pending -PT/OT -Neurosurgery: Dr Cook consulted- no surgical intervention at this time -Neurology: Dr Ovi Pennington recommendations-> - Maintain SBP 120-130s, HOB elevated 30 degrees, Physical therapy, Hold any anticoagulation, Neuro checks, Chol elevated- recommend starting Lipitor 20mg upon dc, Will continue Gabapentin for chronic neuropathic pain, Continue Sinemet , Recommend POLI. No further neurological work up at this time. 2. Dizziness - Start Meclizine 12.5 q6 h PRN 3. Hx of HTN -continue home medications: metoprolol succinate 25 mg PO daily -BP: 131/74 4. Hx of Parkinson's disease - continue home medications: carbidopa/levodopa 5. Hx of Bilateral LE neuropathy - continue home medications: Gabapentin 100mg 6. Hx of Osteoporosis - continue home meds: Calcium carbonate, Vitamin D 7. DVT/GI ppx - SCD/ Protonix
--- NOTE | 2017-08-02 15:08 | MRI ---
PROCEDURE: MRI BRAIN WITHOUT CONTRAST HISTORY: rule out ICH COMPARISON: CT 08/01/2017 TECHNIQUE: Multiplanar, multisequence MR images of the brain were obtained without intravenous contrast enhancement. FINDINGS: HEMORRHAGE: None DWI: No evidence of an acute or early subacute infarction. BRAIN PARENCHYMA: There is a small cavernous angioma in the left frontal white matter measuring 7 mm in diameter. This is best seen on gradient echo image 12 series 7. There is no surrounding edema to suggest an acute hemorrhage. The finding is also visible on the recent CT scans No atrophy or chronic microvascular ischemic changes. VENTRICLES: Unremarkable. No hydrocephalus. CRANIUM: Unremarkable. ORBITS: Grossly unremarkable. PARANASAL SINUSES/MASTOIDS: Clear VASCULAR SYSTEM: Skull base flow voids intact. OTHER FINDINGS: None. 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 This corresponds to the density seen on CT. No evidence of acute hemorrhage
--- NOTE | 2017-08-02 15:11 | MRI ---
PROCEDURE: Magnetic Resonance Angiography Brain HISTORY: Bleed COMPARISON: None available. TECHNIQUE: 3D time of flight MR angiography of the intracranial arteries was performed. Rotating maximum intensity projection images were generated. FINDINGS: INTERNAL CAROTID ARTERIES: Unremarkable. The skull base, petrous, cavernous and supraclinoid segments are bilaterally widely patient. ANTERIOR CEREBRAL ARTERIES: Unremarkable. A1 and A2 segments are widely patent. Smaller distal branches unremarkable, as visualized. MIDDLE CEREBRAL ARTERIES: Unremarkable. M1 and M2 segments are widely patent. Perisylvian branches grossly symmetric. POSTERIOR CIRCULATION: Basilar Artery: Unremarkable. Distal Vertebral Arteries: Unremarkable. Posterior Cerebral Arteries: Unremarkable. Posterior Inferior Cerebellar Arteries: Unremarkable. ANEURYSM/ VASCULAR MALFORMATIONS: None. OTHER FINDINGS: As noted on the MRI study there is a small cavernous angioma in the left frontal white matter. There is no abnormal blood supply to this region IMPRESSION: Unremarkable MR angiography of the brain.
[2017-08-02 23:33] VITALS: O2SAT 98
[2017-08-03] MEDS: Sodium Chloride 0.9% 1,000 ML IV SCH (03:14)
[2017-08-03] MEDS: Pantoprazole 40 mg EC Tab PO SCH (08:23)
[2017-08-03] MEDS: Metoprolol Succinate 25 mg XL Tab PO SCH (10:06)
[2017-08-03] MEDS: CHOLECALCIFEROL PO SCH (11:45)
[2017-08-03] MEDS: DOCOSAHEXAENOIC ACID PO SCH (11:45)
[2017-08-03] MEDS: [UNRECOGNIZED DRUG - OTHER] PO SCH (11:45)
[2017-08-03] MEDS: FISH OIL PO SCH (11:45)
--- NOTE | 2017-08-03 13:42 | CP.PCM.PN ---
Subjective - Date & Time of Evaluation Date of Evaluation: 08/03/17 Time of Evaluation: 06:00 - Subjective Subjective: Patient was seen and examined bedside. She denied headache, but stated she felt a little dizzy again. Denies chest pain, SOB, nausea, N/V, F/C, denies any changes in vision. Denies any numbness, tingling or any other complaints. Objective - Vital Signs/Intake and Output Vital Signs (last 24 hours): Temp Pulse Resp BP Pulse Ox 98.3 F 74 20 128/81 98 08/03/17 12:00 08/03/17 12:00 08/03/17 12:00 08/03/17 12:00 08/03/17 06:00 Intake and Output: 08/03/17 08/03/17 06:59 18:59 Intake Total 2180 Balance 2180 - Medications Medications: Current Medications Acetaminophen (Tylenol 325mg Tab) 650 mg PO Q6H PRN PRN Reason: Pain, Mild (1-3) Last Admin: 08/03/17 03:35 Dose: 650 mg Atorvastatin Calcium (Lipitor) 40 mg PO DIN [facility] Last Admin: 08/02/17 17:13 Dose: 40 mg Calcium Carbonate (Oscal) 500 mg PO DAILY [facility] Last Admin: 08/03/17 10:06 Dose: 500 mg Carbidopa/Levodopa (Sinemet) 1 tab PO TID [facility] Last Admin: 08/03/17 10:06 Dose: 1 tab Cholecalciferol (Vitamin D) 1,000 iu PO DAILY [facility] Last Admin: 08/03/17 10:07 Dose: 1,000 iu Docusate Sodium (Colace) 100 mg PO DAILY [facility] Last Admin: 08/03/17 10:16 Dose: Not Given Gabapentin (Neurontin) 100 mg PO DAILY [facility] PRN Reason: Protocol Last Admin: 08/03/17 10:08 Dose: 100 mg Meclizine HCl (Antivert) 12.5 mg PO Q6H PRN PRN Reason: Other Last Admin: 08/02/17 10:24 Dose: 12.5 mg Metoprolol Succinate (Toprol Xl) 25 mg PO DAILY [facility] Last Admin: 08/03/17 10:06 Dose: 25 mg [place]-3s/Dha/Epa/Fish Oil/D3 [Fish Oil Gummies] Home 1 each PO DAILY [facility] Last Admin: 08/03/17 11:45 Dose: Not Given Pantoprazole Sodium (Protonix Ec Tab) 40 mg PO 0600 [facility] Last Admin: 08/03/17 08:23 Dose: 40 mg - Labs Labs: 08/01/17 05:00 08/01/17 05:00 PT 10.3 Seconds (9.9-11.8) 07/31/17 23:54 INR 0.95 (0.93-1.08) 07/31/17 23:54 APTT 26.2 Seconds (23.7-30.8) 07/31/17 23:54 - Constitutional Appears: Non-toxic, No Acute Distress - Head Exam Head Exam: ATRAUMATIC, NORMAL INSPECTION, NORMOCEPHALIC - Eye Exam Eye Exam: EOMI, Normal appearance, PERRL Pupil Exam: NORMAL ACCOMODATION, PERRL - ENT Exam ENT Exam: Normal Exam - Neck Exam Neck Exam: Full ROM. absent: Lymphadenopathy - Respiratory Exam Respiratory Exam: Clear to Ausculation Bilateral, NORMAL BREATHING PATTERN - Cardiovascular Exam Cardiovascular Exam: REGULAR RHYTHM, +S1, +S2 - GI/Abdominal Exam GI & Abdominal Exam: Normal Bowel Sounds. absent: Tenderness - Extremities Exam Additional comments: 4/5 strength b/l upper and lower extremity - Neurological Exam Neurological Exam: Alert, Awake, Oriented x3 - Psychiatric Exam Psychiatric exam: Normal Mood - Skin Skin Exam: Normal Color Assessment and Plan - Assessment and Plan (Free Text) Assessment: 62yo female PMHx HTN, Parkinson's dz, neuropathy, and osteoporosis presented with right sided facial numbness for 1 day. She was found to have a frontal lobe hemorrhage for which she is being treated and monitored. Plan: 1.Acute Hemorrhage -repeat head CT on 08/01: 6mm focus of acute hemorrhage within L frontal lobe, initial CT showed 9mm acute focus -Neurochecks Q1 -Head above 30 degrees -Lipitor 40mg PO DIN -MRA/MRI: MRA no abnormalities, MRI showed small cavernous angioma in left frontal white matter, 7mm in diameter, no evidence of acute hemmhorage, No intervention per Neurology, or Neurosurgery -PT/OT -Neurosurgery: Dr Cook consulted- no surgical intervention at this time -Neurology: Dr Ovi Pennington recommendations-> - Maintain SBP 120-130s, HOB elevated 30 degrees, Physical therapy, Hold any anticoagulation, Neuro checks, Chol elevated- recommend starting Lipitor 20mg upon dc, Will continue Gabapentin for chronic neuropathic pain, Continue Sinemet , Recommend POLI. No further neurological work up at this time. 2. Dizziness - Continue Meclizine 12.5 q6 h PRN 3. Hx of HTN -continue home medications: metoprolol succinate 25 mg PO daily -BP: 131/74 4. Hx of Parkinson's disease - continue home medications: carbidopa/levodopa 5. Hx of Bilateral LE neuropathy - continue home medications: Gabapentin 100mg 6. Hx of Osteoporosis - continue home meds: Calcium carbonate, Vitamin D 7. DVT/GI ppx - SCD/ Protonix Will try to arrange acute rehab with bilingual patient support caseworker
[2017-08-04] MEDS: Pantoprazole 40 mg EC Tab PO SCH (06:32)
[2017-08-04 08:14] VITALS: PULSE 68; TEMP 97.3
[2017-08-04 09:10] VITALS: RESP 16
[2017-08-04] MEDS: Metoprolol Succinate 25 mg XL Tab PO SCH (09:11)
[2017-08-04 09:14] VITALS: BP 160/56
[2017-08-04] MEDS: FISH OIL PO SCH (09:14)
[2017-08-04] MEDS: DOCOSAHEXAENOIC ACID PO SCH (09:14)
[2017-08-04] MEDS: CHOLECALCIFEROL PO SCH (09:14)
[2017-08-04] MEDS: [UNRECOGNIZED DRUG - OTHER] PO SCH (09:14)
--- NOTE | 2017-08-04 11:23 | CP.PCM.HP ---
History of Present Illness - History of Present Illness History of Present Illness: 62yo female PMHx HTN, Parkinson's dz, neuropathy, and osteoporosis presented on 08/01 with right sided facial numbness for 1 day. Patient reports she woke up and felt the left side of her face was numb and tingling which radiated to the right side. She also complained of a bilateral 10/10 headache with associated blurry vision, dizziness, and lightheadedness. Patient also complained of nausea but no emesis. She also complained of chronic bilateral lower leg pain and paresthesias. Patient has seen Dr. Pennington in the past for paresthesias and has been worked up with cervico/thoraco/lumbar MRI. She reports the numbness is waist down and she feels like her legs are stuck. She denied any saddle anesthesia and incontinence. Patient denied any chest pain, SOB, abdominal pain , bowel/bladder issues or any other complaints. PMHx: HTN, Parkinson's dz, neuropathy, osteoporosis PSurgHx: hysterectomy 1999, 1981, lumpectomy R breast Family Hx: mother HTN, sister breast ca Social Hx: denies tobacco, alcohol, and illicit drug use Allergy: latex, spandex Meds: See MAR Present on Admission - Present on Admission Any Indicators Present on Admission: No Review of Systems - Constitutional Constitutional: As Per HPI. absent: Chills, Fever, Malaise, Weight Loss - EENT Eyes: Blurred Vision Ears: Disequilibrium, Dizziness Nose/Mouth/Throat: absent: Change in Voice, Sore Throat - Cardiovascular Cardiovascular: absent: Chest Pain, Dyspnea - Respiratory Respiratory: absent: Cough, Dyspnea - Gastrointestinal Gastrointestinal: absent: Abdominal Pain, Constipation, Diarrhea, Vomiting - Genitourinary Genitourinary: absent: Difficulty Urinating, Dysuria, Hematuria - Musculoskeletal Musculoskeletal: Muscle Cramps, Numbness, Stiffness, Tingling Additional comments: B/L LE numbness , tingling, stiffness, and cramping. - Integumentary Integumentary: As Per HPI - Neurological Neurological: Disequilibrium, Dizziness, Headaches, Paresthesias - Psychiatric Psychiatric: Anxiety - Endocrine Endocrine: As Per HPI Past Patient History - Infectious Disease Hx of Infectious Diseases: None - Past Social History Smoking Status: Never Smoked Alcohol: None Drugs: Denies Home Situation {Lives}: With Family - CARDIAC Hx Cardiac Disorders: Yes Hx Hypertension: Yes - PULMONARY Hx Respiratory Disorders: No - NEUROLOGICAL Hx Neurological Disorder: Yes Hx Parkinson's Disease: Yes - HEENT Hx HEENT Problems: No - RENAL Hx Chronic Kidney Disease: No - ENDOCRINE/METABOLIC Hx Endocrine Disorders: No - HEMATOLOGICAL/ONCOLOGICAL Hx Blood Disorders: No - INTEGUMENTARY Hx Dermatological Problems: No - MUSCULOSKELETAL/RHEUMATOLOGICAL Hx Arthritis: Yes - GASTROINTESTINAL Hx Gastrointestinal Disorders: No - GENITOURINARY/GYNECOLOGICAL Hx Genitourinary Disorders: No - PSYCHIATRIC Hx Substance Use: No - SURGICAL HISTORY Hx Surgeries: Yes Hx Hysterectomy: Yes Other/Comment: C sect Meds Allergies/Adverse Reactions: Allergies Allergy/AdvReac Type Severity Reaction Status Date / Time latex Allergy Intermediate RASH Verified 08/01/17 04:56 spandex Allergy rash,itch Uncoded 08/01/17 04:56 Physical Exam - Constitutional Appears: Non-toxic, No Acute Distress - Head Exam Head Exam: ATRAUMATIC, NORMAL INSPECTION, NORMOCEPHALIC - Eye Exam Eye Exam: EOMI, Normal appearance, PERRL Pupil Exam: NORMAL ACCOMODATION - ENT Exam ENT Exam: Mucous Membranes Dry, Normal Exam - Neck Exam Neck exam: Positive for: Normal Inspection. Negative for: Lymphadenopathy, Tenderness, Thyromegaly - Respiratory Exam Respiratory Exam: Clear to Auscultation Bilateral, NORMAL BREATHING PATTERN. absent: Rales, Rhonchi, Wheezes - Cardiovascular Exam Cardiovascular Exam: Tachycardia, +S1, +S2. absent: Systolic Murmur - GI/Abdominal Exam GI & Abdominal Exam: Normal Bowel Sounds. absent: Tenderness - Extremities Exam Extremities exam: Positive for: normal capillary refill, normal inspection, pedal pulses present. Negative for: joint swelling, tenderness - Neurological Exam Neurological exam: Alert, CN II-XII Intact, Oriented x3 - Psychiatric Exam Psychiatric exam: Anxious - Skin Skin Exam: Normal Color Results - Vital Signs Recent Vital Signs: Last Vital Signs Temp 97.3 F L 08/04/17 09:09 Pulse 68 08/04/17 09:11 Resp 16 08/04/17 09:09 BP 160/56 H 08/04/17 09:11 Pulse Ox 98 08/04/17 09:09 - Labs Result Diagrams: 08/01/17 05:00 08/01/17 05:00 Assessment & Plan - Assessment and Plan (Free Text) Assessment: 62yo female PMHx HTN, Parkinson's dz, neuropathy, and osteoporosis presented with right sided facial numbness for 1 day. Plan: 1.Acute Hemorrhage - CT head without contrast: 9mm focus of acute hemorrhage within L frontal lobe - repeat head CT on 08/01 - Patient kept NPO - Neurochecks Q1 - Head above 30 degrees - Fall risk - Aspiration precautions - PT/OT - Neurosurgery: Dr Cook consulted - Neurology: Dr Ovi Pennington consulted 2. Hx of HTN - hold home medications - restart when patient passes swallow eval 3. Hx of Parkinson's disease - hold home medications - restart when patient passes swallow eval 4. Hx of Bilateral LE neuropathy - hold home medications - restart when patient passes swallow eval 5. Hx of Osteoporosis - hold home medications - restart when patient passes swallow eval 6. GI ppx: Protonix 40mg ivp qdaily DVT ppx: SCDs Diet: NPO Fluids: NS @ 100cc/hr H and P obtained on 08/02 - Date & Time Date: 08/02/17 Time: 06:00
--- NOTE | 2017-08-04 15:51 | CP.PCM.DIS ---
Provider - Provider Date of Admission: 08/01/17 02:22 Attending physician: Miguel Uriostegui MD Time Spent in preparation of Discharge (in minutes): 70 Hospital Course - Lab Results Lab Results: Micro Results 08/01/17 04:57 Nose MRSA Culture (Admit) - Final MRSA NOT DETECTED Most Recent Lab Values WBC 8.4 10^3/ul (4.5-11.0) 08/01/17 05:00 RBC 5.02 10^6/uL (3.5-6.1) 08/01/17 05:00 Hgb 15.0 g/dL (12.0-16.0) 08/01/17 05:00 Hct 44.3 % (36.0-48.0) 08/01/17 05:00 MCV 88.2 fl (80.0-105.0) 08/01/17 05:00 MCH 29.9 pg (25.0-35.0) 08/01/17 05:00 MCHC 33.9 g/dl (31.0-37.0) 08/01/17 05:00 RDW 12.5 % (11.5-14.5) 08/01/17 05:00 Plt Count 328 10^3/uL (120.0-450.0) 08/01/17 05:00 MPV 10.0 fl (7.0-11.0) 08/01/17 05:00 Gran % 79.5 % (50.0-68.0) H 08/01/17 05:00 Lymph % (Auto) 14.3 % (22.0-35.0) L 08/01/17 05:00 [place] % (Auto) 5.1 % (1.0-6.0) 08/01/17 05:00 Eos % (Auto) 0.6 % (1.5-5.0) L 08/01/17 05:00 Baso % (Auto) 0.5 % (0.0-3.0) 08/01/17 05:00 Gran # 6.64 (1.4-6.5) H 08/01/17 05:00 Lymph # 1.2 (1.2-3.4) 08/01/17 05:00 [place] # 0.4 (0.1-0.6) 08/01/17 05:00 Eos # 0.1 (0.0-0.7) 08/01/17 05:00 Baso # 0.04 K/mm3 (0.0-2.0) 08/01/17 05:00 PT 10.3 Seconds (9.9-11.8) 07/31/17 23:54 INR 0.95 (0.93-1.08) 07/31/17 23:54 APTT 26.2 Seconds (23.7-30.8) 07/31/17 23:54 Sodium 142 mmol/L (132-148) 08/01/17 05:00 Potassium 3.8 mmol/L (3.6-5.0) 08/01/17 05:00 Chloride 105 mmol/L (98-107) 08/01/17 05:00 Carbon Dioxide 27 mmol/L (21-33) 08/01/17 05:00 Anion Gap 14 (10-20) 08/01/17 05:00 BUN 10 mg/dL (7-21) 08/01/17 05:00 Creatinine 0.6 mg/dL (0.7-1.2) L 08/01/17 05:00 Est GFR ( Amer) > 60 08/01/17 05:00 Est GFR (Non-Af Amer) > 60 08/01/17 05:00 POC Glucose (mg/dL) 64 mg/dL (65-110) L 08/02/17 07:34 Random Glucose 105 mg/dL (70-110) 08/01/17 05:00 Hemoglobin A1c 5.5 % (4.2-6.5) 08/01/17 05:00 Calcium 9.3 mg/dL (8.4-10.5) 08/01/17 05:00 Phosphorus 3.6 mg/dL (2.5-4.5) 08/01/17 05:00 Magnesium 2.2 mg/dL (1.7-2.2) 08/01/17 05:00 Total Bilirubin 0.5 mg/dL (0.2-1.3) 08/01/17 05:00 AST 26 U/L (14-36) 08/01/17 05:00 ALT 25 U/L (7-56) 08/01/17 05:00 Alkaline Phosphatase 67 U/L (38-126) 08/01/17 05:00 Lactate Dehydrogenase 411 U/L (333-699) 07/31/17 23:54 Total Creatine Kinase 41 U/L (35-230) 07/31/17 23:54 Troponin I < 0.01 ng/mL 07/31/17 23:54 Total Protein 6.9 g/dL (5.8-8.3) 08/01/17 05:00 Albumin 4.2 g/dL (3.0-4.8) 08/01/17 05:00 Globulin 2.7 gm/dL 08/01/17 05:00 Albumin/Globulin Ratio 1.6 (1.1-1.8) 08/01/17 05:00 Triglycerides 84 mg/dL (35-160) 08/01/17 05:00 Cholesterol 248 mg/dL (130-200) H 08/01/17 05:00 LDL Cholesterol Direct 151 mg/dL (0-129) H 08/01/17 05:00 HDL Cholesterol 74 mg/dL (29-60) H 08/01/17 05:00 Thyroxine (T4) 12.9 ug/dL (5.5-11.0) H 08/01/17 05:00 TSH 3rd Generation 0.75 mIU/mL (0.46-4.68) 08/01/17 05:00 Urine Color Straw (YELLOW) 07/31/17 23:54 Urine Appearance Clear (CLEAR) 07/31/17 23:54 Urine pH 6.5 (4.7-8.0) 07/31/17 23:54 Ur Specific [place] <= 1.005 (1.005-1.035) 07/31/17 23:54 Urine Protein Negative mg/dL (<30 mg/dL) 07/31/17 23:54 Urine Glucose (UA) Negative mg/dL (NEGATIVE) 07/31/17 23:54 Urine Ketones Negative mg/dL (NEGATIVE) 07/31/17 23:54 Urine Blood Negative (NEGATIVE) 07/31/17 23:54 Urine Nitrate Negative (NEGATIVE) 07/31/17 23:54 Urine Bilirubin Negative (NEGATIVE) 07/31/17 23:54 Urine Urobilinogen 0.2 E.U./dL (<1 E.U./dL) 07/31/17 23:54 Ur Leukocyte Esterase Small [place]/uL (NEGATIVE) H 07/31/17 23:54 Urine RBC 0 - 2 /hpf (0-2) 07/31/17 23:54 Urine WBC 0 - 2 /hpf (0-6) 07/31/17 23:54 Ur Epithelial Cells 0 - 2 /hpf (0-5) 07/31/17 23:54 - Hospital Course Hospital Course: 62yo female PMHx HTN, Parkinson's dz, neuropathy, and osteoporosis presents with facial weakness that started on the left side and moved to the right side for 1 day. Admitted to associated bilateral headache, nausea, dizziness, lightheadedness. Denied falls and is not on any anticoagulation. Patient was admitted and evaluated for an acute hemorrhage. She was placed in ICU and monitored closely. SHe was started on her home medications. Labs and vitals were monitored closely. CT head showed 9 mm focus of acute hemorrhage within the left frontal lobe; Repeat CT showed a 6mm focus, no mass defect. Neurology and Neurosurgery were consulted. Neurosurgery recommended conservative management. MRA was obtained which did not show any abnormalities. 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 No evidence of acute hemorrhage. NO intervention per neurosurgery. Pt moved OOB to chair, eating well, evaluated by Physical Therapy. Patient started on meclizine 12.5mg for dizziness. Patient condition improve and she was discharged to acute rehab in [place]. Jakit understood plan and all questions were addressed. Discharge Exam - Head Exam Head Exam: ATRAUMATIC, NORMAL INSPECTION, NORMOCEPHALIC - Eye Exam Eye Exam: EOMI, Normal appearance, PERRL Pupil Exam: NORMAL ACCOMODATION - ENT Exam ENT Exam: Normal Exam - Respiratory Exam Respiratory Exam: Clear to PA & Lateral, NORMAL BREATHING PATTERN - Cardiovascular Exam Cardiovascular Exam: REGULAR RHYTHM, +S1, +S2 - GI/Abdominal Exam GI & Abdominal Exam: Unremarkable - Extremities Exam Extremities exam: normal inspection, pedal pulses present - Neurological Exam Neurological exam: Alert, CN II-XII Intact, Oriented x3 - Skin Skin Exam: Normal Color Discharge Plan - Follow Up Plan Condition: CRITICAL Disposition: REHAB FACILITY/REHAB UNIT Instructions: Parkinson Disease (DC), Fall Prevention for Older Adults (GEN), Fall Prevention (DC) Additional Instructions: Patient to be transferred to [facility], can follow outpatient with Neurology Dr. Pennington. Continue current medications.
== END 2017-08-04 17:48 | DRG 66 ==
LOC: ED 22:22 → ERH 08-01 02:22 → CCU 08-01 04:24 → 2RNO 08-03 02:35 → 5RSO 08-03 14:29
PROVIDERS: ADMIT Internal Medicine; ATTEND Internal Medicine
DX: I61.1 Nontraumatic intracerebral hemorrhage in hemisphere, cortical (principal); G20 Parkinson's disease; D18.00 Hemangioma unspecified site; G89.29 Other chronic pain; M54.9 Dorsalgia, unspecified; I10 Essential (primary) hypertension; M81.0 Age-related osteoporosis without current pathological fracture; R29.810 Facial weakness; Z79.899 Other long term (current) drug therapy; Z80.3 Family history of malignant neoplasm of breast; Z82.49 Family history of ischemic heart disease and other diseases of the circulatory system; Z90.710 Acquired absence of both cervix and uterus; M19.90 Unspecified osteoarthritis, unspecified site; Z91.040 Latex allergy status; Z91.048 Other nonmedicinal substance allergy status; G62.9 Polyneuropathy, unspecified